=== PATIENT | male | born 2000 | race Two or more races ===

== ENCOUNTER 2024-08-15 14:13 | Inpatient (IN) | payer OTHER ==
[~2024-08-15] VITALS: Ht 172.7 cm; Wt 65.8 kg
[2024-08-15] MEDS ORDERED: KETOROLAC TROMETHAMINE 30 MG VIAL IU ONE (16:45)
[2024-08-15 17:11] LABS: PH,URINE 6.5 (5.0-8.0); URINE APPEARANCE Clear; URINE BILIRRUBIN Negative (NEGATIVE); URINE BLOOD Negative; URINE COLOR Yellow; URINE GLUCOSE Negative (NEGATIVE); URINE LEUKOCYTE Negative; URINE NITRATE Negative; URINE PROTEIN Negative (NEGATIVE)
[2024-08-15 17:14] LABS: HEMATOCRIT 47.4 % (39.0-48.0); HEMOGLOBIN 16.3 g/dL (13-16.00); MEAN CELL VOLUME 84.9 fL (80.0-100.00); MEAN CORPUSCULAR HEMOGLOBIN 29.3 pg (27.00-32.0); MEAN CORPUSCULAR HGB CONC 34.5 g/dl (32.0-36.0); PLATELET COUNT 269 K/uL (150-450); RED BLOOD COUNT 5.58 M/uL (4.00-6.00); RED CELL DISTRIBUTION WIDTH 12.9 % (11.5-14.5)
[2024-08-15 17:14] LABS: URINE RBC 6.8 uL (0.0-20.8)
[2024-08-15 17:19] LABS: URINE BACTERIA 1.2 uL (0.0-1933); URINE EPITHELIAL CELLS 0.6 uL (0.0-38.8); URINE KETONE 40 (NEGATIVE); URINE WBC 1.3 uL (0.0-23.2)
[2024-08-15 17:27] LABS: INR 1.12; PARTIAL THROMBOPLASTIN TIME 31.6 SECONDS (22.0-34.0); PROTHROMBIN TIME 12.1 SECONDS (9.0-11.5)
[2024-08-15 17:33] LABS: ALBUMIN 4.6 gm/dL (3.4-5.0); BILIRUBIN TOTAL 0.77 mg/dL (0.3-1.2); CALCIUM 9.6 mg/dL (8.5-10.1); CREATININE SERUM 0.94 mg/dL (0.70-1.30); GFR 97.78; GLOBULINA 3.2 G/DL (2.4-3.5); POTASSIUM 3.81 mEq/L (3.5-5.1); TOTAL PROTEIN 7.8 gm/dL (6.4-8.2)
[2024-08-15] MEDS ORDERED: 0.9 % SODIUM CHLORIDE 1,000 ML IV SCH (19:30)
[2024-08-15] MEDS ORDERED: MORPHINE SULFATE 4 MG/ML CARTRIDGE IV PRN (19:30)
[2024-08-15] MEDS ORDERED: ACETAMINOPHEN 500 MG GEL..CAP PO PRN (19:30)
[2024-08-15] MEDS ORDERED: ONDANSETRON HCL 4 MG in 0.9 % SODIUM CHLORIDE 50 ML IV PRN (19:30)
[2024-08-15] MEDS ORDERED: RINGERS SOLUTION,LACTATED 1,000 ML IV SCH (19:30)
[2024-08-15 22:11] VITALS: BP 130/75; O2SAT 98
[2024-08-16 03:07] VITALS: BP 135/81; O2SAT 100
[2024-08-16 08:08] VITALS: BP 116/60; O2SAT 98
[2024-08-16] MEDS ORDERED: FAMOTIDINE/PF 20 MG in 0.9 % SODIUM CHLORIDE 8 ML IV PUSH SCH (09:00)
[2024-08-16] MEDS ORDERED: ENOXAPARIN SODIUM 40 MG/0.4 ML SYRINGE SUBCUTANEO SCH (09:00)
[2024-08-16] MEDS ORDERED: ERTAPENEM SODIUM 1,000 MG in 0.9 % SODIUM CHLORIDE 100 ML IV SCH (09:00)
[2024-08-16] MEDS ORDERED: PERCOCET 5-3251 EACH PO (12:50)
[2024-08-16] MEDS ORDERED: CELEBREX200MG PO (12:51)
[2024-08-16] MEDS ORDERED: NEURONTIN300 MG PO (12:51)
[2024-08-16] MEDS ORDERED: POLY119PG PO (12:51)
[2024-08-16] MEDS ORDERED: MORPHINE SULFATE 4 MG/ML VIAL IV ONE (13:40)
[2024-08-16 16:44] VITALS: BP 140/74; O2SAT 100
== END 2024-08-16 19:00 | disposition home or self-care (01) | DRG 355 ==
LOC: ER 14:13 → SURH 20:12 → SURG 20:12 → SURH 08-16 02:06 → SURG 08-16 10:31
PROVIDERS: General Practice; ADMIT Surgery; ATTEND Surgery
PROC: 0WUF4JZ Supplement Abdominal Wall with Synthetic Substitute, Percutaneous Endoscopic Approach (ICD-10-PCS; principal; 2024-08-15)
DX: K40.90 Unilateral inguinal hernia, without obstruction or gangrene, not specified as recurrent (principal); Z20.822 Contact with and (suspected) exposure to COVID-19